=== PATIENT | male | born 1980 ===

== ENCOUNTER 2022-06-12 14:40 | Emergency (ER) | payer BC ==
[2022-07-02 10:47] LABS: ANION GAP 7.8 meq/L (7-15); CHLORIDE,CL 106 mmol/L (98-107); ESTIMATED GFR 109 mL/min (>=60); SODIUM,NA 143 mmol/L (136-145)
== END 2022-06-12 16:56 ==
LOC: LL.ED 14:40
DX: R10.32 Left lower quadrant pain (principal); E66.9 Obesity, unspecified
CPT/HCPCS: 36415; 74019; 80053; 85025; 99284

== ENCOUNTER 2023-02-09 04:55 | Emergency (ER) | payer BC ==
[2023-02-09 05:27] LABS: BASOPHILS ABSOLUTE AUTO 0.02 K/uL (0.00-0.20); BASOPHILS PERCENT AUTO 0.2 % (0.0-2.0); EOSINOPHILS ABSOLUTE AUTO 0.24 K/uL (0.00-0.50); EOSINOPHILS PERCENT AUTO 2.8 % (0.0-5.0); HEMATOCRIT 42.1 % (39.0-49.0); HEMOGLOBIN 14.4 g/dL (13.1-16.8); LYMPHOCYTES ABSOLUTE AUTO 1.75 K/uL (0.50-3.50); LYMPHOCYTES PERCENT AUTO 20.4 % (10.0-50.0); MEAN CORPUSCULAR HEMOGLOBIN 28.9 pg (28.2-33.3); MEAN CORPUSCULAR HGB CONC 34.2 g/dL (31.7-36.0); MEAN CORPUSCULAR VOLUME 84.4 fL (84.0-98.0); MONOCYTES ABSOLUTE AUTO 0.41 K/uL (0.00-1.00); MONOCYTES PERCENT AUTO 4.8 % (2.0-14.0); NEUTROPHILS ABSOLUTE AUTO 6.15 K/uL (1.40-7.00); NEUTROPHILS PERCENT AUTO 71.8 % (45.0-80.0); PLATELET COUNT,PLT 296 K/uL (150-350); RED BLOOD CELL COUNT 4.99 M/uL (4.33-5.41); RED CELL DISTRIBUTION WIDTH 13.1 % (11.2-14.1); WHITE BLOOD CELL COUNT,WBC 8.6 K/uL (4.0-10.2)
[2023-02-09 05:43] LABS: ALBUMIN 3.6 g/dL (3.4-5.0); ANION GAP 8.4 meq/L (7-15); BILIRUBIN TOTAL 0.7 mg/dL (0.2-1.0); CALCIUM 9.2 mg/dL (8.5-10.1); CARBON DIOXIDE,CO2 27.6 mmol/L (21.0-32.0); CREATININE 0.81 mg/dL (0.51-1.17); EST CRCL DRUG DOSING (CG) 127.74 mL/min; POTASSIUM,K 3.8 mmol/L (3.5-5.1); PROTEIN TOTAL,TP 7.2 g/dL (6.4-8.2)
== END 2023-02-09 05:57 | disposition home or self-care (01) ==
LOC: LL.ED 04:55
DX: K40.90 Unilateral inguinal hernia, without obstruction or gangrene, not specified as recurrent (principal); Z88.0 Allergy status to penicillin; Z88.2 Allergy status to sulfonamides; Z79.899 Other long term (current) drug therapy
CPT/HCPCS: 36415; 80053; 85025; 99284

== ENCOUNTER 2024-06-13 01:56 | Emergency (ER) | payer BC | END 2024-06-13 02:53 | disposition home or self-care (01) | LOC: LL.ED 01:56 | DX: R42 Dizziness and giddiness (principal); Z88.0 Allergy status to penicillin; Z88.2 Allergy status to sulfonamides | CPT/HCPCS: 99283; 99284 ==